=== PATIENT | male | born 1965 | race Caucasian/White ===

== ENCOUNTER 2018-08-11 10:07 | Emergency (ER) | payer OTHER ==
--- OUTSIDE RECORDS SUMMARY | 2018-08-11 10:33 | XMS REPORT | Continuity of Care Document ---
:1965 External Reference #:[id number] Author Name Melissa Medellin Care Team Providers Name Role Phone Chema Rollins MD Primary Care Physician Unavailable Payers Date Identification Numbers Payment Provider Subscriber Policy Number: [id number] [employer] Flaquita Tabor PayID: [id number] [address] [place] [address] Problems Description No Active Problems Family History Date Family Member(s) Observation Comments Father due to Skin Cancer () - age 56 Mother Arthritis Mother Stroke Mother Glaucoma Siblings 4 Brothers Social History Type Date Description Comments Sex Unknown Marital Status 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 [employer] ETOH Use Denies alcohol use Tobacco Use Start: Unknown Patient has never smoked Smoking Status Reviewed: 08/07/18 Patient has never smoked Exercise Type/Frequency Exercises regularly Allergies, Adverse Reactions, Alerts Active Allergies Reaction Severity Comments Date NKDA 05/01/2015 Tree Nuts Allergic asthma, Anaphylaxis Severe 05/01/2015 Medications Active Medications SIG Qnty Indications Ordering Provider Date Amoxicillin/Clavulan take one tablet 20tabs J01.90 Juan Luis Garcia NP 2018 ate Potassium q12 hours for 10 days 875-125mg Tablets Ambien one by mouth at 30tabs Juan Luis Garcia NP 05/01/2015 5mg Tablets bedtime as needed for sleep Epipen 2-Walter one injection as 1units Z91.018 Juan Luis Garcia NP 05/01/2015 needed 0.3mg/0.3ML Solution Auto-Inject History Medications Levofloxacin one by mouth 10tabs J01.90 Juan Luis Garcia, 06/19/2016 - 500mg daily for 10 days ALLERGY PHYSICIAN 06/29/2016 Tablets Fluticasone Propionate 2 sprays each 16gm J01.90 Juan Luis Garcia, 06/19/2016 - nostril qd. ALLERGY PHYSICIAN 08/06/2018 50mcg/Act Suspension Augmentin 1 tablet by mouth 20tabs J01.90 Juan Luis Garcia, 06/11/2016 - 875-125mg q12 hours for 10 ALLERGY PHYSICIAN 06/11/2016 Tablets days Augmentin 1 tablet by mouth 20tabs J01.90 Juan Luis Garcia, 06/11/2016 - 875-125mg q12 hours for 10 ALLERGY PHYSICIAN 06/21/2016 Tablets days Triamcinolone apply a thin film 15units R21 Juan Luis Jose, 05/01/2015 - Acetonide of cream to the ALLERGY PHYSICIAN 05/11/2015 0.025% Cream affected areas 2-4 times a day. Immunizations CPT Code Status Date Vaccine Lot # [id number] Given 10/27/2017 Influenza Virus Vaccine, Quadrivalent, Split, Preservative Free Vital Signs Date Vital Result Comment 08/07/2018 2:28pm Height 70.5 inches 5'10.50" Weight 154.50 lb Heart Rate 84 /min BP Systolic 115 mmHg BP Diastolic 71 mmHg Body Temperature 98.1 F O2 % BldC Oximetry 96 % BMI (Body Mass Index) 21.9 kg/m2 02/24/2018 11:22am Height 70.5 inches 5'10.50" Weight 152.31 lb Heart Rate 59 /min BP Systolic 104 mmHg BP Diastolic 68 mmHg BP Systolic Sitting 110 mmHg BP Diastolic Sitting 68 mmHg BP Systolic Standing 112 mmHg BP Diastolic Standing 70 mmHg BP Systolic Lying Down 109 mmHg BP Diastolic Lying Down 62 mmHg Body Temperature 97.2 F O2 % BldC Oximetry 97 % BMI (Body Mass Index) 21.5 kg/m2 Waist Circumference 32" 06/19/2016 3:59pm Heart Rate 59 /min BP Systolic Sitting 126 mmHg BP Diastolic Sitting 84 mmHg Body Temperature 97.6 F O2 % BldC Oximetry 97 % 06/11/2016 11:44am Weight 157.00 lb Heart Rate 61 /min BP Systolic Sitting 116 mmHg BP Diastolic Sitting 82 mmHg Body Temperature 98.1 F O2 % BldC Oximetry 99 % 05/01/2015 2:08pm Weight 155.00 lb Heart Rate 64 /min BP Systolic Sitting 122 mmHg BP Diastolic Sitting 70 mmHg Respiratory Rate 15 /min Body Temperature 98.4 F O2 % BldC Oximetry 98 % Results Test Date Facility Test Result H/L Range Note Ua Routine 08/07/[address] [facility] Ua Specific [place] <pending> Ua PH <pending> Ua Color <pending> Ua Appera <pending> Ua WBC <pending> Ua Protein <pending> Ua Glucose <pending> Ua Ketones <pending> Ua Bilirubin <pending> Ua Urobilinogen <pending> Ua Nitrite <pending> Ua Occult Blood <pending> Laboratory test 05/02/2017 [facility] Surgical SEE RESULT 1 , [address] [place] [address] [phone] 1 [id number] 2 SEE RESULT BELOW Name: FLAQUITA TABOR : [address]: Renee Mast DO Acct: [id number] Unit: [id number] AGE: 51 Location: [facility] Re05/02/17 SEX: M Status: DEP REF SPEC: [id number] PRINCE: 05/02/17-0613 [facility] DR: Renee Mast DO REQ: [id number] RECD: 05/02/171606 STATUS: CHELY COX DR: Juan Luis Garcia ALLERGY PHYSICIAN _ ORDERED: LEVEL 4 COMMENTS: [id number] FINAL DIAGNOSIS Colon, sigmoid, biopsy: -- Tubular adenoma. -- No high grade dysplasia or malignancy. CLINICAL HISTORY Screening/Surveillance for malignancy in asymptomatic patient. No family history of colon cancer POST-OPERATIVE DIAGNOSIS 3 mm sessile sigmoid polyp; small non-bleeding internal hemorrhoids; good prep; tortuous colon. Conclusions/Plan: Follow-up pathology GROSS DESCRIPTION The specimen is received in formalin labeled, Biopsy Sigmoid Colon Polyp, and consists of a 0.6 by up to 0.4 x 0.3 cm speckled white-pink irregular to polypoid soft tissue fragment, which is entirely submitted in one cassette. Signed (signature on file) Keesha Reagan MD [id number] END OF REPORT DEPARTMENT OF PATHOLOGY, [address] [place] [address] Ulises Carbajal M.D. Director [facility] # [id number] Procedures Date Code Description Status 02/24/2018 41964 Admin & Interp Of Health Risk Assessment w/ Patient Completed 05/02/2017 02811 Colonoscopy Flexible W/Biopsy Completed 05/02/2017 17237047 Colonoscopy Completed 12/19/2016 30215 Destruction Of Benign Lesions Any Method 1-14 lesions Completed Encounters Type Date Location Provider Dx Diagnosis Office Visit 02/24/2018 [facility] Internal Juan Luis Garcia NP Z00.00 Encntr for general 11:00a Medicine - [facility] adult medical exam w/o abnormal findings I95.1 Orthostatic hypotension Office Visit 12/19/2016 9:00a [facility] Dermatology Kervin Tovar, L82.1 Other seborrheic MD keratosis B36.0 Pityriasis versicolor D18.01 Hemangioma of skin and subcutaneous tissue L82.0 Inflamed seborrheic keratosis Z78.9 Other specified health status S00.80xA Unsp superficial injury of other part of head, init encntr L53.8 Other specified erythematous conditions Office Visit 06/19/2016 3:20p [facility] Internal Juan Luis Garcia, J01.90 [facility] unspecified R09.81 Nasal congestion Office Visit 06/11/2016 11:40a [facility] Juan Luis Garcia J01.90 Acute sinusitis, Medicine - [facility] ALLERGY PHYSICIAN unspecified Z12.11 Encounter for screening for malignant neoplasm of colon Office Visit 05/01/2015 2:00p [facility] Juan Luis Garcia NP R21 Rash and other Medicine - [facility] nonspecific skin eruption Z91.018 Allergy to other foods G47.00 Insomnia, unspecified Plan of Treatment 08/07/2018 - Juan Luis Garcia NPJ01.90 Acute sinusitis, unspecifiedNew Medication: Amoxicillin/Clavulanate Potassium 875-125 mg - take one tablet q12 hours for 10 daysComments:Complete the entire course of antibiotics, even if feeling better.You can try using Flonase nasal spray, 2 sprays each nostril, for about 10 days. A decongestant, such as Sudafed, may help reduce sinuspain and pressure.R30.0 Dysuria
[2018-08-11 10:35] VITALS: BP 125/80
--- NOTE | 2018-08-11 10:37 | UC ---
Back Pain HPI - HPI Summary HPI Summary: 52 yo male presents with low back pain. He tells me that 2 days ago he bent over to worm picker his 10 month old child and felt a pop and pull in his lower back. He immediate pain in the area. The rest of the day he took some ibuprofen and rested. Pain was worse yesterday and he had trouble walking due to the pain. Today he felt a little bit better and was able to walk better and was able to drive. His pain does not radiate into his legs, buttock, or groin. He denies numbness, tingling, saddle anesthesia, or loss of bowel/bladder control. - History of Current Complaint Chief Complaint: UCBackPain Stated Complaint: LOWER BACK PAIN Time Seen by Provider: 08/11/18 10:37 Hx Obtained From: Patient Onset/Duration: Sudden Onset Timing: Constant Severity Initially: Severe Severity Currently: Moderate Pain Intensity: 7 Pain Scale Used: 0-10 Numeric - Allergies/Home Medications Allergies/Adverse Reactions: Allergies Allergy/AdvReac Type Severity Reaction Status Date / Time Tree Nuts Allergy Severe Anaphylatic Verified 08/11/18 10:35 Shock gluten AdvReac celiac Verified 08/11/18 10:35 disease PMH/Surg Hx/FS Hx/Imm Hx - Additional Past Medical History Additional PMH: Insomnia - Surgical History Surgical History: None - Family History Known Family History: Positive: None - Social History Lives: With Family Alcohol Use: Occasionally Substance Use Type: None Smoking Status (MU): Never Smoked Tobacco - Immunization History Most Recent Tetanus Shot: 2011 Review of Systems All Other Systems Reviewed And Are Negative: Yes Constitutional: Positive: Negative Skin: Positive: Negative Respiratory: Positive: Negative Cardiovascular: Positive: Negative Gastrointestinal: Positive: Negative Genitourinary: Positive: Negative Neurovascular: Positive: Negative Musculoskeletal: Positive: Other: - Low back pain Neurological: Positive: Negative Psychological: Positive: Negative Physical Exam - Summary Physical Exam Summary: GENERAL: NAD. WDWN. No pain distress. SKIN: No rashes, sores, lesions, or open wounds. NECK: Supple. FROM. Nontender. No lymphadenopathy. CHEST: CTAB. No r/r/w. No accessory muscle use. Breathing comfortably and in no distress. CV: RRR. Without m/r/g. Pulses intact. Cap refill <2seconds MSK: TTP over lumbar paraspinal muscles. Pain with flexion and extension of spine. Positive SLR b/l for low back pain without radiation. Strength 5/5 B/L LEs including dorsiflexion and plantar flexion. FROM B/L LEs. No edema. NEURO: Alert. Sensations intact B/L LEs L3-S1. Reflexes intact PSYCH: Age appropriate behavior. Triage Information Reviewed: Yes Vital Signs: Initial Vital Signs Temp 97.1 F 08/11/18 10:31 Pulse 52 08/11/18 10:31 Resp 16 08/11/18 10:31 BP 125/80 08/11/18 10:31 Pulse Ox 100 08/11/18 10:31 Vital Signs Reviewed: Yes Back Pain Course/Dx - Course Course Of Treatment: XR: IMPRESSION: FACET OSTEOARTHRITIS WITH MILD DEGENERATIVE DISC DISEASE. 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 Discussed results with pt. 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 I am unsure if the pars defect is related to his acute back pain, generally, these injuries are due to overuse injuries - therefore this could be due to his hiking and biking. I will have him f/u with [facility] within 1 week for further evaluation. Rx for naproxen and flexeril for his discomfort. Advised to refrain from physical activities until he can see [facility]. Apply heat to the lower back to reduce pain. - Differential Dx/Diagnosis Provider Diagnosis: Low back strain, Pars defect of lumbar spine Discharge - Sign-Out/Discharge Documenting (check all that apply): Patient Departure All imaging exams completed and their final reports reviewed: Yes - Discharge Plan Condition: Stable Disposition: HOME Prescriptions: Cyclobenzaprine TAB* [Flexeril 10 MG TAB*] 10 mg PO BID PRN #14 tab PRN Reason: Pain Naproxen [Naproxen 500 mg tab] 500 mg PO BID PRN #30 tablet.dr [place] Reason: Pain Patient Education Materials: Low Back Strain (ED), Lower Back Exercises (ED) Referrals: Juan Luis Garcia NP [Primary Care Provider] - [facility] [Provider Group] - 1 Week Additional Instructions: If you develop a fever, shortness of breath, chest pain, new or worsening symptoms - please call your PCP or go to the ED immediately. The X-Rays of your lower back showed Spondylolysis (a small stress fracture to one of the sides of the vertebra in your lower back). -- I am unsure if this is related to the back injury, but suspect it is more likely from overuse and running/biking/hiking. 1) In addition to the above, I suspect you have some muscle strain that should improve with rest, heat, and anti-inflammatory medications. 2) Please try the Naproxen and Flexeril as prescribed for discomfort 3) I suggest you refrain from physical activity until you are able to see [facility]. 4) Please call [facility] at the number below to schedule a follow up appointment within 1 week. - Billing Disposition and Condition Condition: STABLE Disposition: Home - Attestation Statements Provider Attestation: I was available for consult. This patient was seen by the RONI. The patient was not presented to, seen by, or examined by me. -Aleida
== END 2018-08-11 11:34 | disposition home or self-care (01) ==
LOC: UCEAST 10:07
DX: S39.012A Strain of muscle, fascia and tendon of lower back, initial encounter (principal); X50.9XXA Other and unspecified overexertion or strenuous movements or postures, initial encounter; Y92.9 Unspecified place or not applicable; M43.06 Spondylolysis, lumbar region
CPT/HCPCS: 72110; 99212; G0463